=== PATIENT | female | born 1960 | race Caucasian/White ===

== ENCOUNTER 2018-06-03 13:08 | Inpatient (IN) | payer OTHER ==
[~2018-06-03] VITALS: Ht 170.2 cm; Wt 120.7 kg
[2018-06-03] VITALS (31 sets, daily range): BP systolic 71–137; BP diastolic 37–76
--- NOTE | ~2018-06-03 | PROC ---
[address] [address] PROCEDURE REPORT Name: CHANCE VEGA Room: [address] IN ..#: [id number] Admission: 06/03/18 Attend Phys: Manas Smith MD Discharge: 06/12/18 Date of : 58 Report #: [id number] THIS REPORT FOR: //name// For GI report, please see the provation report in perceptive 7 content. By: 1239Medical Records Staff HANNA /SHANKAR
--- NOTE | ~2018-06-03 | CON ---
[address] [address] CONSULTATION Name: CHANCE VEGA Room: [address] IN [facility]#: [id number] Admission: 06/03/18 Attend Phys: Manas Smith MD Discharge: Date of : 58 Report #: [id number] THIS REPORT FOR: //name// CC: Rona Smith DATE OF SERVICE: 06/04/2018 REASON FOR CONSULT: Possible coffee-ground emesis. HISTORY OF PRESENT ILLNESS: This is a 57-year-old female who was admitted to hospital with symptoms of bloody diarrhea and vomitus. The patient apparently was short of breath and required high-pressure oxygen. She is currently on 8 liter of O2. The patient denies having O2 at home. She was found to have pneumonia per imaging. Since hospitalization, her hemoglobin had been fluctuating from 13 to 11. She had a bowel movement that was dark. There was no evidence of hematochezia. She also has not had any further episodes of nausea, vomiting or hematemesis. The patient reports that she has been taking omeprazole for at least 20 years. She has never had upper endoscopy or colonoscopy. PAST MEDICAL HISTORY: Significant for history of pneumonia, opiate overdose, kidney stones, hematemesis, COPD, hypertension, GERD, depression and asthma. ALLERGIES: No known drug allergy. MEDICATIONS: Please refer to MAR. SOCIAL HISTORY: The patient denies use of alcohol, but has history of tobaccoism. FAMILY HISTORY: Negative for GI malignancy. PHYSICAL EXAMINATION: VITAL SIGNS: Reveals blood pressure of 118/72, respiration is 17, pulse 87, temperature 98.9. LUNGS: Clear. CARDIOVASCULAR: Regular. ABDOMEN: Soft, mildly tender to palpation in the epigastric region. Bowel sounds are positive. NEUROLOGIC: The patient is alert, oriented x 3. Note that she is currently on 7 liters of O2 nasal cannula. LABORATORY DATA: Revealed sodium of 139, potassium 2.9, BUN is 31, creatinine 1.6, glucose is 157, AST is 87, ALT 46, total bilirubin is 0.6. Albumin [place] 2.4. [place] [address] CONSULTATION Name: CHANCE VEGA Fredis Room: [address] IN [facility]#: [id number] Admission: 06/03/18 Attend Phys: Manas Smith MD Discharge: Date of : 58 Report #: [id number] INR is 1.0. WBC is 14.7 with hemoglobin of 11.8, down from 14 on admission. Platelet is 224. IMAGING: CT of abdomen and pelvis was obtained on admission. There is extensive multifocal right lower lobe and right middle lobe infiltrate consistent with pneumonia. There is a 9-mm soft tissue pulmonary nodule within the posterior medial left lower lobe. There is no evidence of ascites or any acute processes in the abdomen. ASSESSMENT AND PLAN: The patient with coffee-ground emesis upon presentation, which has had stable hemoglobin since admission. She also has not had any further symptoms of nausea and vomiting. She has never had endoscopic evaluation and has been taking omeprazole for 20 years plus. We will recommend EGD once her respiratory status back to baseline. She also will need a colonoscopy as outpatient. We will continue to monitor the patient's hemoglobin. Meanwhile, we will continue her PPI therapy. By: 1236 1256Cate Rashid MD /nt
[~2018-06-03 13:08] MED LIST: ALBUTEROL2.5 MG/31 INH; ALPRAZOLAM 0.50.5 MG PO; AMBIEN; AMBIEN 10 MG TA10 MG; ATIVAN1 MG PO; BENTYL 10 MG CA10 M1 PO; CIPRO250 M1 PO; DILAUDID 4 MG TA4 M1 PO; GABAPENTIN 100100 MG PO; HYDROCHLOROTHIA25 M1; HYDROCODON-ACE1 EA12; HYDROCODON-ACE1 EAC8 PO; HYDROCODONE-AP1 EAC6 PO; LISINOPRIL-HCT1 EAC2 PO; MEDROL DOSPAK21 TA1; MOBIC15 MG; MOBIC15 MG PO; MS CONTIN30 MG PO; NAPROSYN500 MG PO; NICOTINE TRANSD21 M1 TRANSDERM; NORCO 10-325 T1 EACH PO; NORFLEX100 MG PO; OMEPRAZOLE10 MG PO; OMEPRAZOLE40 MG; OXYCODONE HCL15 MG PO; PERCOCET 10-321 EACH PO; PHENAZOPYRIDIN200 M2 PO; PREDNISONE 20 M20 M1 PO; PREDNISONE 20 M20 MG PO; REQUIP0.5 MG PO; REQUIP5 MG; REQUIP5 MG PO; RESTORIL15 MG PO; SYMBICORT80 MCG/4.1 INH; TUSSIONEX PENN473 ML PO; ULTRAM 50MG TAB50 MG PO; VALIUM10 MG; VENTOLIN HFA 1818 GM INH; ZOFRAN8 MG PO; ZOLOFT50 MG PO; ZPAK PO; albuterol INH
[2018-06-03 14:06] LABS: BE -2.5 mmol/L (-2 to +3); HCO3 24.3 mmol/L (22.0-26.0); PCO2 49.8 mmHg (35.0-45.0); PO2 80.8 mmHg (75.0-100.0); pH 7.307 (7.340-7.450)
[2018-06-03] MEDS ORDERED: WELLBUTRIN XL150 MG PO (14:08)
[2018-06-03] MEDS ORDERED: LEXAPRO 10 MG T10 M1 PO (14:09)
[2018-06-03] MEDS ORDERED: LISINOPRIL-HCT1 EAC2 PO (14:09)
[2018-06-03] MEDS ORDERED: ATIVAN1 MG PO (14:10)
[2018-06-03] MEDS ORDERED: MOBIC7.5 MG PO (14:10)
[2018-06-03] MEDS ORDERED: SINGULAIR 10 MG10 M1 PO (14:11)
[2018-06-03] MEDS ORDERED: MS CONTIN15 MG PO (14:12)
[2018-06-03] MEDS ORDERED: PRILOSEC OTC20 MG PO (14:13)
[2018-06-03] MEDS ORDERED: OXYCODONE-ACET1 EACH PO (14:13)
[2018-06-03 14:48] LABS: HEMATOCRIT 43.4 % (37.0-47.0); MCH 29.8 pg (26.0-34.0); MCHC 32.1 g/dL (28.0-37.0); MCV 92.8 fL (80.0-100.0); MPV 10.6 fl. (7.2-11.1); NUCLEATED RBCS 0 /100WBC; PLATELET COUNT* 289 thou/uL (150-400); RBC 4.68 mil/uL (4.20-5.00); RDW-CV 14.3 % (10.5-14.5); WBC 12.4 thou/uL (4.0-11.0)
[2018-06-03 14:55] LABS: CALCIUM 8.3 mg/dL (8.5-10.1); CREATININE 3.6 mg/dL (0.6-1.3)
[2018-06-03 14:57] LABS: ABSOLUTE MONOCYTES 1.1 thou/uL (0.0-1.2)
[2018-06-03 14:59] LABS: ALBUMIN 2.8 g/dL (3.4-5.0); MAGNESIUM 1.6 mg/dL (1.8-2.4); TOTAL BILIRUBIN 1.3 mg/dL (<0.1-1.0); TOTAL PROTEIN 5.2 g/dL (6.4-8.2)
[2018-06-03 15:31] LABS: ABSOLUTE EOSINOPHILS 0.1 thou/uL (0.0-0.7); ABSOLUTE LYMPHOCYTES 1.4 thou/uL (0.8-5.3); ABSOLUTE NEUTROPHILS 9.8 thou/uL (1.6-8.1); ATYPICAL LYMPHS 1 %; METAMYELOCYTES 1 %
[2018-06-03 15:32] LABS: PLATELET ESTIMATE ADEQUATE
[2018-06-03 15:52] LABS: URINE BLOOD NEGATIVE (Negative); URINE CLARITY CLOUDY; URINE COLOR YELLOW; URINE GLUCOSE-RANDOM NEGATIVE (Negative); URINE KETONES NEGATIVE (Negative); URINE LEUKOCYTES-REFLEX NEGATIVE (Negative); URINE NITRITE-REFLEX NEGATIVE (Negative); URINE PROTEIN NEGATIVE (Negative); URINE SPECIFIC GRAVITY >= 1.030 (1.005-1.030); URINE UROBILINOGEN 0.2 E.U./dl (0.2-1.0)
[2018-06-03 15:53] LABS: ICTOTEST (BILI CONFIRMATORY) Negative (Negative); URINE BILIRUBIN 1+ (Negative)
[2018-06-03 17:38] LABS: INR 1.6; PROTIME 15.9 Seconds (9.20-11.50)
[2018-06-03 17:56] LABS: INFLUENZA A ANTIGEN None Detected (None Detect); INFLUENZA B ANTIGEN None Detected (None Detect)
[2018-06-03 20:50] LABS: HEMATOCRIT 41.6 % (37.0-47.0); HEMOGLOBIN 13.5 gm/dL (12.0-15.0)
[2018-06-04] VITALS (49 sets, daily range): BP systolic 70–155; BP diastolic 35–93
[2018-06-04 06:16] LABS: ABSOLUTE LYMPHOCYTES 0.6 thou/uL (0.8-5.3); ABSOLUTE MONOCYTES 0.6 thou/uL (0.0-1.2); BASOPHILS 0.1 %; HEMATOCRIT 40.2 % (37.0-47.0); LYMPHOCYTES 4.7 %; MCHC 32.3 g/dL (28.0-37.0); MONOCYTES 4.6 %; MPV 10.2 fl. (7.2-11.1); NUCLEATED RBCS 0 /100WBC; PLATELET COUNT* 242 thou/uL (150-400); POLYS 90.6 %; RBC 4.33 mil/uL (4.20-5.00); RDW-CV 14.6 % (10.5-14.5); WBC 12.2 thou/uL (4.0-11.0)
[2018-06-04 06:26] LABS: CALCIUM 7.9 mg/dL (8.5-10.1); CREATININE 2.5 mg/dL (0.6-1.3); POTASSIUM 3.8 mmol/L (3.5-5.1)
[2018-06-04 06:28] LABS: INR 1.2; PROTIME 12.2 Seconds (9.20-11.50)
[2018-06-04 08:31] LABS: BE -7.7 mmol/L (-2 to +3); HCO3 18.1 mmol/L (22.0-26.0); PCO2 38.1 mmHg (35.0-45.0)
[2018-06-04 08:35] LABS: pH 7.295 (7.340-7.450)
[2018-06-04] MEDS ORDERED: PERCOCET PO ×2 (10:20→10:21)
[2018-06-04] MEDS ORDERED: PERCOCET 7.5-31 EACH PO (10:41)
--- NOTE | 2018-06-04 11:20 | CON ---
[address] [address] CONSULTATION Name: CHANCE VEGA Room: [address] IN .R.#: [id number] Admission: 06/03/18 Attend Phys: Manas Smith MD Discharge: Date of : 58 Report #: [id number] THIS REPORT FOR: //name// CC: Rona Smith REFERRING PHYSICIAN: Dr. Smith. REASON FOR CONSULTATION: Respiratory failure. HISTORY OF PRESENT ILLNESS: This is a 57-year-old female patient with history of COPD according to her. She was on BiPAP during my visit, but she was able to provide history. Also, her daughter was at the bedside and she also helped with the history. The patient is not on oxygen at home. She is not steroid dependent, but she has inhalers, and she continues to smoke 10 cigarettes per day for the last 40 years. Monday night, she was doing fine, but in the morning Monday when she did not answer the phone for her daughter, she went to check on her, she found her in bed with vomiting around her mouth with what looked like old blood. When they tried to get her up, she was really extremely weak and her mental status was in and out. She did not look short of breath or dyspneic particularly at that time. They brought her into the ER and she was found to be in distress and respiratory failure, and placed on BiPAP The family reported diarrhea stool too and the night before the reported to the family that she was falling asleep and looked weak while she was eating and she was not making sense the morning she was found. She was found to have fever after hospitalization, a temperature of 38, but the patient reported that she did not have fever or shortness of breath or cough or cold symptoms or sick contacts the day before. She denied any chest pain. Today, when I saw her, she was actually awake, alert, on 55% BiPAP, tolerating that well, able to talk, speech mostly able to understand through the BiPAP mask. HOME MEDICATIONS: She is on Wellbutrin, Lexapro, lisinopril, hydrochlorothiazide, Mobic, Ativan, Singulair, MS Contin, Prilosec and oxycodone. PAST MEDICAL HISTORY: Includes nephrolithiasis, opiate dependence, peptic ulcer disease, COPD, hypertension. PAST SURGICAL HISTORY: Cholecystectomy, lumbar surgery, left knee surgery. FAMILY HISTORY: Reviewed, none pertinent to the above chief complaint. SOCIAL HISTORY: She continues to smoke about 10 cigarettes per day for the last 40 years. Drinks alcohol every few months. Does not abuse drugs, but as mentioned above, [place] [address] CONSULTATION Name: GARYCHANCE PASCAL Fredis Room: [address] IN ..#: [id number] Admission: 06/03/18 Attend Phys: Manas Smith MD Discharge: Date of : 58 Report #: [id number] REVIEW OF SYSTEMS: The patient told me that she did not have any fever or chills or visual changes or blurring of vision, although she does not remember the details the morning she got sick. She denied any history of trauma or headache or hearing loss or tinnitus or congestion or dysphagia or dysarthria or bleeding before. She has no chest pain, no palpitation. On the BiPAP she feels comfortable, but off the BiPAP she gets short of breath and drops her O2 saturation. Currently, she has no nausea, no vomiting, tolerating liquids. She had no dysuria, frequency, urgency. She denied any bruising or anemia. She denied any rash. She denied any calf tenderness. A 12-point review of systems reviewed with the patient, negative other than what is mentioned above. ALLERGIES: No known drug allergies. PHYSICAL EXAMINATION: VITAL SIGNS: She was on 55% FiO2 with saturation 97% on the monitor, she is on 4 mcg of Levophed, blood pressure 92/53, breathing 18 times a minute, pulse rate of 91, temperature 36.4, although 38 last night. GENERAL: Lying in bed, comfortable on BiPAP mask, awake, alert, answers questions properly. HEENT: Head normocephalic, atraumatic. Pupils reactive to light, not pale, not jaundiced. Externally ears look healthy and normal. Oral cavity not examined. I did not take the BiPAP mask off. NECK: Full range of movement. Nontender, no masses felt. CHEST: Diminished air movement bilaterally, mostly on the right base where I was able to hear crackles at the right lung base. I did hear some wheezes bilaterally. Nontender chest. HEART: S1, S2. No murmur, no gallop. ABDOMEN: Benign, soft, lax, nontender, positive bowel sounds. EXTREMITIES: Lower extremities, trace edema equally bilaterally. No calf tenderness. SKIN: Normal for age and race, no rash. NEUROLOGIC: Moving 4 extremities spontaneously. No focal weakness. Cranial nerves grossly normal, although limited exam because of the BiPAP mask. LYMPHATICS: No palpable lymph nodes. LABORATORY DATA: Her white blood count is 12.4, hemoglobin 14 and platelets of 289, slight shift on the differential. ABGs, 7.29/38/72 on 55% FiO2 and 16 and 6, consistent with metabolic acidosis. Her creatinine is 2.5, it was 3.6 upon hospitalization. Her BUN of 42. White count of 23, it was 22 upon hospitalization. Potassium 3.8. Her influenza A and B rapid screen negative. MRSA pending. Her chest x-ray initially showed right-sided infiltrates. It was also confirmed on the repeat chest x-ray. IMPRESSION: 1. Acute hypoxic [place] [address] CONSULTATION Name: GARYCHANCE Fredis Room: [address]#: [id number] Admission: 06/03/18 Attend Phys: Manas Smith MD Discharge: Date of : 58 Report #: [id number] 2. Pneumonia. 3. Suspected aspiration into the airways. 4. Gastrointestinal bleed. 5. Mental status change. 6. Acute renal failure. 7. Metabolic acidosis. 8. Chronic obstructive pulmonary disease exacerbation. The patient currently on the bicarbonate drip. Continue to monitor urine output and fluid status and follow up on ABGs. Would continue the IV steroids and antibiotics, wean vasopressors as tolerated. She is now needing BiPAP most of the time. I did discuss with RN, we can take her off for short breaks for some liquids p.o. if allowed and slowly wean her off the BiPAP. Will need a followup ABGs and chest x-rays. The patient's condition is guarded. Critical care time 40 minutes. <ELECTRONICALLY SIGNED> By: Rl English MD 06/04/18 1120 0915 [id number] English MD /nt
[2018-06-04] MEDS ORDERED: NEURONTIN 400400 M1 PO (12:04)
--- NOTE | 2018-06-04 15:00 | 2DMMODE ---
[place] [address] 2 D/M-MODE ECHOCARDIOGRAM Name: CHANCE VEGA Room: [address] IN [facility]#: [id number] Admission: 06/03/18 Attend Phys: Manas Smith, Discharge: Date of : 58 Date of Service: 06/04/18 1500 Report #: [id number] THIS REPORT FOR: //name// APPROVED REPORT Study performed: 06/04/2018 09:17:35 EXAM: Comprehensive 2D, Doppler, and color-flow Echocardiogram Patient Location: In-Patient Room #: [facility] Status: routine BSA: 2.37 HR: 95 bpm BP: 110/65 mmHg Rhythm: NSR Other Information Study Quality: Fair Indications Dyspnea 2D Dimensions IVSd: 12.81 (7-11mm) LVOT Diam: 20.13 (18-24mm) LVDd: 46.69 mm PWd: 12.65 (7-11mm) Ascending Ao: 30.27 (22-36mm) LVDs: 32.83 (25-40mm) Aortic Root: 32.53 mm Volumes Left Atrial Volume (Systole) LA ESV Index: 17.50 mL/m2 Aortic Valve AoV Peak Erlin.: 1.60 m/s AO Peak Gr.: 10.25 mmHg LVOT Max P.95 mmHg AO Mean Gr.: 5.49 mmHg LVOT Mean P.27 mmHg LVOT Max V: 1.50 m/s AO V2 VTI: 25.28 cm LVOT Mean V: 0.95 m/s ROGELIO (VTI): 3.10 cm2 LVOT V1 VTI: 24.59 cm Mitral Valve E/A Ratio: 1.00 MV Decel. Time: 182.33 ms MV E Max Erlin.: 0.71 m/[place] [address] 2 D/M-MODE ECHOCARDIOGRAM Name: CHANCE VEGA Room: [address] IN [facility]#: [id number] Admission: 06/03/18 Attend Phys: Manas Smith, Discharge: Date of : 58 Date of Service: 06/04/18 1500 Report #: [id number] PHT: 52.88 ms MVA (PHT): 4.16 cm2 TDI E/Lateral E': 5.07 E/Medial E': 6.45 Medial E' Erlin.: 0.11 m/s Lateral E' Erlin.: 0.14 m/s Pulmonary Valve PV Peak Erlin.: 1.08 m/s PV Peak Gr.: 4.63 mmHg Left Ventricle The left ventricle is normal size. There is normal LV segmental wall motion. Mild concentric left ventricular hypertrophy. Left ventricular systolic function is normal. The left ventricular ejection fraction is within the normal range. LVEF is 55-60%. The left ventricular diastolic function is normal. Right Ventricle The right ventricle is normal size. The right ventricular systolic function is normal. Atria The left atrium size is normal. The right atrium size is normal. Aortic Valve The aortic valve is normal in structure. No aortic regurgitation is present. There is no aortic valvular stenosis. Mitral Valve The mitral valve is normal in structure. There is no mitral valve regurgitation noted. No evidence of mitral valve stenosis. Tricuspid Valve The tricuspid valve is normal in structure. Unable to assess PA pressure. Trace tricuspid regurgitation. Pulmonic Valve Pulmonic valve is not well visualized. There is no pulmonic valvular regurgitation. Great Vessels The aortic root is normal in size. IVC is normal in size and collapses >50% [place] [address] 2 D/M-MODE ECHOCARDIOGRAM Name: CHANCE VEGA Room: [address] IN [facility]#: [id number] Admission: 06/03/18 Attend Phys: Manas Smith, Discharge: Date of : 58 Date of Service: 06/04/18 1500 Report #: [id number] Pericardium There is no pericardial effusion. <Conclusion> LVEF is 55-60%. Mild concentric left ventricular hypertrophy. <ELECTRONICALLY SIGNED> By: Garica Carballo MD, FACC 06/04/181499 1500 99 Garcia Carballo MD, FACC /INF
[2018-06-05] VITALS (26 sets, daily range): BP systolic 91–133; BP diastolic 45–106
[2018-06-05 04:19] LABS: ABSOLUTE LYMPHOCYTES 0.5 thou/uL (0.8-5.3); ABSOLUTE MONOCYTES 0.9 thou/uL (0.0-1.2); ABSOLUTE NEUTROPHILS 13.3 thou/uL (1.6-8.1); BASOPHILS 0.1 %; EOSINOPHILS 0.1 %; HEMATOCRIT 36.3 % (37.0-47.0); HEMOGLOBIN 11.8 gm/dL (12.0-15.0); LYMPHOCYTES 3.6 %; MCH 29.9 pg (26.0-34.0); MCHC 32.5 g/dL (28.0-37.0); MONOCYTES 5.8 %; MPV 10.5 fl. (7.2-11.1); NUCLEATED RBCS 0 /100WBC; PLATELET COUNT* 224 thou/uL (150-400); POLYS 90.4 %; RBC 3.94 mil/uL (4.20-5.00); RDW-CV 14.8 % (10.5-14.5); WBC 14.7 thou/uL (4.0-11.0)
[2018-06-05 04:32] LABS: PROTIME 10.5 Seconds (9.20-11.50)
[2018-06-05 04:47] LABS: BE -1.7 mmol/L (-2 to +3); HCO3 22.6 mmol/L (22.0-26.0); PCO2 36.7 mmHg (35.0-45.0); PO2 75.5 mmHg (75.0-100.0); pH 7.407 (7.340-7.450)
[2018-06-05 04:51] LABS: ALBUMIN 2.4 g/dL (3.4-5.0); CALCIUM 8.3 mg/dL (8.5-10.1); CREATININE 1.6 mg/dL (0.6-1.3); MAGNESIUM 1.8 mg/dL (1.8-2.4); TOTAL BILIRUBIN 0.6 mg/dL (<0.1-1.0); TOTAL PROTEIN 5.8 g/dL (6.4-8.2)
[2018-06-05 04:54] LABS: POTASSIUM 2.9 mmol/L (3.5-5.1)
[2018-06-06] VITALS (13 sets, daily range): BP systolic 104–147; BP diastolic 62–84
[2018-06-06 05:34] LABS: HEMATOCRIT 34.4 % (37.0-47.0); HEMOGLOBIN 11.1 gm/dL (12.0-15.0); MCH 29.7 pg (26.0-34.0); MCHC 32.4 g/dL (28.0-37.0); MCV 91.7 fL (80.0-100.0); MPV 10.2 fl. (7.2-11.1); RBC 3.75 mil/uL (4.20-5.00); RDW-CV 14.6 % (10.5-14.5); WBC 13.5 thou/uL (4.0-11.0)
[2018-06-06 05:42] LABS: CALCIUM 8.3 mg/dL (8.5-10.1); CREATININE 1.2 mg/dL (0.6-1.3); POTASSIUM 3.7 mmol/L (3.5-5.1)
[2018-06-06 08:23] LABS: BE 1.1 mmol/L (-2 to +3); HCO3 26.2 mmol/L (22.0-26.0); PO2 102.1 mmHg (75.0-100.0); pH 7.393 (7.340-7.450)
[2018-06-07 04:00] VITALS: BP 120/74
[2018-06-07 12:00] VITALS: BP 131/75
[2018-06-07 16:00] VITALS: BP 141/79
[2018-06-07 20:00] VITALS: BP 131/70
[2018-06-08] VITALS: BP 129/75
[2018-06-08 04:00] VITALS: BP 141/73
[2018-06-08 07:30] VITALS: BP 144/79
[2018-06-08 12:12] VITALS: BP 147/75
[2018-06-08 16:18] VITALS: BP 145/72
[2018-06-08 20:00] VITALS: BP 101/86; BP 151/86
[2018-06-09 01:26] VITALS: BP 149/73
[2018-06-09 04:00] VITALS: BP 130/70
[2018-06-09 08:07] VITALS: BP 135/71
[2018-06-09 12:00] VITALS: BP 148/70
[2018-06-09 16:00] VITALS: BP 152/78
[2018-06-09 20:00] VITALS: BP 141/74
[2018-06-10 00:55] VITALS: BP 123/63
[2018-06-10 06:04] VITALS: BP 125/73
[2018-06-10 08:22] VITALS: BP 120/71
[2018-06-10 12:00] VITALS: BP 139/65
[2018-06-10 16:00] VITALS: BP 137/78
[2018-06-10 20:00] VITALS: BP 151/85
[2018-06-11 00:30] VITALS: BP 112/70
[2018-06-11 05:02] VITALS: BP 142/68
[2018-06-11 08:09] VITALS: BP 124/64
[2018-06-11 09:40] VITALS: BP 124/64
[2018-06-11 16:00] VITALS: BP 114/51
--- NOTE | 2018-06-11 16:39 | EKG ---
[place] [address] ELECTROCARDIOGRAM REPORT Name: CHANCE VEGA Room: [address] ADM IN M.R.#: [id number] Admission: 06/03/18 Attend Phys: Manas Smith MD Discharge: Date of : 58 Report #: [id number] THIS REPORT FOR: //name// [facility] Test Date: 2018-06-11 Test Time: 08:27:55 Pat Name: CHANCE VEGA Department: Room: [address] Gender: F Olericulturist: IGNACIO : 1960 Requested By: Nathan Chaparro Order Number: [id number] Lisbet MD: Gerber Gonzalez Measurements Intervals [place] Rate: 72 P: 51 ME: 130 QRS: 38 QRSD: 85 T: 30 QT: 372 QTc: 408 Interpretive Statements Sinus rhythm Compared to ECG 12/16/2014 08:40:29 No significant changes Electronically Signed On 06-11-2018 16:39:08 MICA PASTER by Gerber Gonzalez [email or web address] <ELECTRONICALLY SIGNED> By: Gerber Gonzalez MD, [facility]ATED [facility] 06/11/18 1639 6 6 Gerber Gonzalez MD, [facility] /EPI
[2018-06-11 20:00] VITALS: BP 133/63
[2018-06-12] VITALS: BP 102/50
[2018-06-12 04:00] VITALS: BP 115/70
[2018-06-12 08:38] VITALS: BP 135/76
[2018-06-12] MEDS ORDERED: NYSTATIN100000 UNI SW&SWALLOW (12:10)
[2018-06-12] MEDS ORDERED: ADVAIR 250-501 EACH INH (12:13)
[2018-06-12] MEDS ORDERED: PROAIR RESPICL90 MCG INH (12:14)
[2018-06-12] MEDS ORDERED: AUGMENTIN 875-1 EACH PO (12:15)
[2018-06-12] MEDS ORDERED: PROTONIX40 M1 PO (12:16)
[2018-06-12 12:26] VITALS: BP 135/76
--- NOTE | 2018-06-13 15:06 | PATH ---
[facility] [address] [place] [address] PATHOLOGY RPT PROCEDURE Name: MAGDALENA VEGA Room: [address] IN M.R.#: [id number] Admission: 06/03/18 Date of : 58 Discharge: 06/12/18 Report #: [id number] Path Case #: [id number] [facility] Accession Number: [id number] . 01 Material submitted: . PART A: ESOPHAGEAL ULCER BIOPSY R/O CMV AND HSV PART B: RECTAL SIGMOID ULCERATION . 01 Clinical history: . Severe sepsis with septic shock . 02 Diagnosis: A. Esophageal ulcer biopsy: - Herpes esophagitis with ulceration. See comment. . B. Rectosigmoid ulceration: - Active colitis with ulceration and fibrosis typical of ischemic colitis, negative for granulomas, viral inclusions and dysplasia. See comment. (RICARDO:john; 06/12/2018) QMS/06/12/2018 . 02 Comment: The esophageal ulcer biopsy (A) shows abundant diagnostic features of herpes esophagitis including acantholysis of squamous cells showing abundant multinucleation and ground glass changes. A minute fragment of benign glandular/columnar type mucosa without goblet cells is noted. The rectosigmoid ulceration (B) shows typical features of ischemic colitis including benign colonic mucosa with ulceration, mucosal fibrosis, atrophy, and preservation of deeper aspects of the crypts, and hyaline thrombi in small vessels. There is no significant basal lymphoplasmacytosis or crypt distortion to elevate a concern for inflammatory bowel disease. (RICARDO:john; 06/12/2018) . 02 Electronically signed: . Tomas Queen MD, Pathologist NPI- [id number] . 01 Gross description: . A. Received in formalin labeled "Magdalena Vega, esophageal ulcer biopsy, rule out CMV and HSV," are 3 segments of castro soft tissue measuring 1.3 x 0.4 x 0.1 cm in aggregate dimensions and ranging from 0.2 to 0.6 cm in maximum dimension. The specimen is submitted entirely in cassette A1. . B. Received in formalin labeled "Magdalena Vega, rectal sigmoid ulceration," are 5 segments of castro soft tissue measuring 0.9 x 0.6 x 0.2 cm in aggregate dimensions and ranging from 0.2 to 0.3 cm in maximum dimension. The specimen is submitted entirely [place] [address] PATHOLOGY RPT PROCEDURE Name: MAGDALENA VEGA Room: [address] IN [facility].#: [id number] Admission: 06/03/18 Date of : 58 Discharge: 06/12/18 Report #: [id number] Path Case #: [id number] (TSD; 06/11/2018) TOB/TOB . 02 Pathologist provided ICD-10: K55.9, K20.8 . 02 CPT . 232070, 088356 Specimen Comment: A courtesy copy of this report has been sent to Specimen Comment: [phone], , . Specimen Comment: Report sent to , DR CONNELLY / DR LEE Specimen Comment: A duplicate report has been generated due to demographic updates. Performed at: 01 [facility] [address] [facility] [address], [place] [id number] MD Jc Tejada MD Phone: [phone] Performed at: 02 [facility] Alfonso Gonzalez, [place], [place] [id number] MD Tomas Queen MD Phone: [phone]
== END 2018-06-12 13:25 | disposition home or self-care (01) | DRG 871 ==
LOC: M.ERS 13:08 → M.ICU 15:00 → M.TBA-ER 15:00 → M.ICU 15:45 → M.2W 06-06 17:44
PROVIDERS: Internal Medicine Gastroenterology; Personal Emergency Response Attendant; ADMIT Internal Medicine
PROC: 02HV33Z Insertion of Infusion Device into Superior Vena Cava, Percutaneous Approach (ICD-10-PCS; principal; 2018-06-03)
PROC: 5A09357 Assistance with Respiratory Ventilation, Less than 24 Consecutive Hours, Continuous Positive Airway Pressure (ICD-10-PCS; principal; 2018-06-03)
PROC: 5A09357 Assistance with Respiratory Ventilation, Less than 24 Consecutive Hours, Continuous Positive Airway Pressure (ICD-10-PCS; 2018-06-05)
PROC: 0DBP8ZX Excision of Rectum, Via Natural or Artificial Opening Endoscopic, Diagnostic (ICD-10-PCS; 2018-06-11)
PROC: 0DBN8ZX Excision of Sigmoid Colon, Via Natural or Artificial Opening Endoscopic, Diagnostic (ICD-10-PCS; 2018-06-11)
PROC: 0DB58ZX Excision of Esophagus, Via Natural or Artificial Opening Endoscopic, Diagnostic (ICD-10-PCS; 2018-06-11)
PROC: 0DD38ZX Extraction of Lower Esophagus, Via Natural or Artificial Opening Endoscopic, Diagnostic (ICD-10-PCS; 2018-06-11)
DX: A41.9 Sepsis, unspecified organism (principal); R65.21 Severe sepsis with septic shock; J69.0 Pneumonitis due to inhalation of food and vomit; J96.01 Acute respiratory failure with hypoxia; G92 Toxic encephalopathy; J96.02 Acute respiratory failure with hypercapnia; N17.0 Acute kidney failure with tubular necrosis; K22.11 Ulcer of esophagus with bleeding; E87.2 Acidosis; J44.1 Chronic obstructive pulmonary disease with (acute) exacerbation; B37.81 Candidal esophagitis; K63.3 Ulcer of intestine; F32.9 Major depressive disorder, single episode, unspecified; F41.1 Generalized anxiety disorder; F17.210 Nicotine dependence, cigarettes, uncomplicated; K44.9 Diaphragmatic hernia without obstruction or gangrene; K29.70 Gastritis, unspecified, without bleeding; K52.9 Noninfective gastroenteritis and colitis, unspecified; K21.0 Gastro-esophageal reflux disease with esophagitis; Z87.442 Personal history of urinary calculi; Z87.11 Personal history of peptic ulcer disease; Z90.49 Acquired absence of other specified parts of digestive tract; Z79.899 Other long term (current) drug therapy; Z79.51 Long term (current) use of inhaled steroids

== ENCOUNTER 2021-03-03 23:17 | Emergency (ER) | payer OTHER ==
[~2021-03-03] VITALS: Ht 167.6 cm; Wt 122.5 kg
[~2021-03-03 23:17] MED LIST changes: +ADVAIR 250-501 EACH INH; +AUGMENTIN 875-1 EACH PO; +LEXAPRO 10 MG T10 M1 PO; +MOBIC7.5 MG PO; +MS CONTIN15 MG PO; +NEURONTIN 400400 M1 PO; +NYSTATIN100000 UNI SW&SWALLOW; +OXYCODONE-ACET1 EACH PO; +PERCOCET 7.5-31 EACH PO; +PERCOCET PO; +PRILOSEC OTC20 MG PO; +PROAIR RESPICL90 MCG INH; +PROTONIX40 M1 PO; +SINGULAIR 10 MG10 M1 PO; +WELLBUTRIN XL150 MG PO
[2021-03-04] MEDS ORDERED: HYDROCHLOROTHIA25 M1 PO (03:31)
[2021-03-04 03:35] VITALS: BP 155/74
--- NOTE | 2021-03-04 07:54 | EKG ---
[place] [address] ELECTROCARDIOGRAM REPORT Name: GARYCHANCE A Room: [facility]#: [id number] Admission: 03/03/21 Attend Phys: Discharge: 03/04/21 Date of : 58 Date of Service: 03/03/218 Report #: [id number] THIS REPORT FOR: //name// [facility] ED Test Date: 2021-03-03 Test Time: 23:28:34 Pat Name: CHANCE VEGA Department: Room: Gender: F Block Cuber: DEVEN : 1960 Requested By: Angelina Jarvis Order Number: [id number] MD: Chucho Alaniz Measurements Intervals [place] Rate: 73 P: 68 PA: 165 QRS: 61 QRSD: 95 T: 61 QT: 398 QTc: 439 Interpretive Statements Sinus rhythm Compared to ECG 06/11/2018 08:27:55 No significant changes Electronically Signed On 03-04-2021 7:53:50 CDT by Chucho Alaniz [email or web address] <ELECTRONICALLY SIGNED> By: Chucho Alaniz MD, [facility] 03/04/21 0753 2328 2328 Chucho Alaniz MD, [facility] /EPI
== END 2021-03-04 03:35 | disposition home or self-care (01) ==
LOC: M.ERS 23:17
DX: T78.3XXA Angioneurotic edema, initial encounter (principal); I10 Essential (primary) hypertension; J44.9 Chronic obstructive pulmonary disease, unspecified; F32.9 Major depressive disorder, single episode, unspecified; Z98.890 Other specified postprocedural states; Z90.49 Acquired absence of other specified parts of digestive tract; Z87.442 Personal history of urinary calculi; Z79.899 Other long term (current) drug therapy